=== PATIENT | female | born 1970 | race Caucasian/White ===

== ENCOUNTER 2017-05-13 09:10 | Inpatient (IN) ==
--- NOTE | 2017-05-13 09:27 | Emergency Department Note ---
Arrival - Arrival Chief Complaint: Non-Specific Stated Complaint: Thyroid abscess sent to see Dr Arteaga ED Nursing Triage Note: c/o swelling to lt side of throat on last week. pt was seen here last night and has 3 abscesses in her neck. pt was told to come back to be admitted to surgery Mode of Arrival: Ambulatory Time Seen by Provider: 05/13/17 09:20 - History of Present Illness Date of Last Menstrual Period: 2 weeks ago Allergies/Adverse Reactions: Allergies Allergy/AdvReac Type Severity Reaction Status Date / Time No Known Allergies Allergy Verified 05/12/17 21:23 Home Medications: Home Medications Medication Instructions Recorded Confirmed Type Amoxicillin/Clav Tab [Augmentin 875 mg PO Q12H 05/12/17 05/13/17 History Tab] Medical,Surgical,& Family Hx - Medical History Endocrine: History of: Thyroid Disorder (enlarged) - Social History Smoking Status: Never smoker Frequency of Alcohol Use: None Type of Drug Use: None Exam Vital Signs: Vital Signs Temperature 97.1 F L 05/14/17 06:58 Pulse Rate 75 05/14/17 06:58 Respiratory Rate 18 05/14/17 06:58 Blood Pressure 126/77 05/14/17 06:58 O2 Sat by Pulse Oximetry 99 05/14/17 06:58 Course Course Narrative: Patient was not seen by me. There should have been no note generated for this patient. Orders written for Dr. Modi. Discussed with Dr. Modi. If there is any question regarding this patient please see ER note from earlier today by Dr. Whitfield Results - Labs CBC & BMP: 05/14/17 03:33 05/14/17 03:33 Disposition Clinical Impression: Acute suppurative thyroiditis Disposition: Still a Patient
[2017-05-13] MEDS ORDERED: ACETAMINOPHEN 325 MG TABLET PO PRN (10:17)
[2017-05-13] MEDS ORDERED: ONDANSETRON 4 MG/2 ML VIAL IV PRN (10:17)
[2017-05-13] MEDS ORDERED: LACTATED RINGERS 1,000 ML IV SCH (10:17)
[2017-05-13] MEDS ORDERED: HYDROmorphone 2 MG/1 ML VIAL IV PRN (13:15)
[2017-05-13] MEDS ORDERED: ALUMINUM/MAGNES/SIMETH MAX STR 30 ML UDCUP PO PRN (13:15)
[2017-05-13] MEDS ORDERED: BISACODYL 5 MG TABLET PO PRN (13:15)
--- NOTE | 2017-05-13 13:29 | General Surg History&Physical ---
Assessment and Plan - Time spent with patient Time spent with patient: Greater than 30 minutes (1) Goiter diffuse, nontoxic Status: Acute Assessment and plan: Impression: Border of the thyroid gland with cystic and solid masses doubt an abscess Plan: Lab tests plus needle aspirations Current Visit: Yes (2) Thyroid mass of unclear etiology Status: Acute Assessment and plan: Impression: Cystic mass of the lower lobes of the thyroid etiology unclear Plan: Needle aspiration Current Visit: Yes History of Present Illness Chief complaint: Came in because of pain in the left neck History of present illness: Ms. Mccollum is a 46 year old female white who came into the emergency room because of some pain in the left neck area with a fullness in that region. She had seen a family physician who put her on some Augmentin because of some swelling in the area of the left jaw region to treat a possible inflammation of the parotid gland.. She got better with this treatment because at the time she was running fever and that seemed to resolve with fullness persist as well as some the discomfort. She came to the emergency room last night and while down there she had a CT scan of the neck and then went home and I was called about the results of the CT and had to have her come in at this time. There is suggestion of a CT that she had an enlarged thyroid probably Gorder with some cystic masses that were present in this area but they were reading them as possible abscesses. Have never really encountered an abscess of the thyroid gland so I am not sure exactly what this is doing at this time. Certainly it is a Gorder with some cystic masses present at this point and will need to get her in for some needle aspirations possible cultures of fluid just to see exactly what we are trying to deal with here. Her TSH is a little bit low but she denies being ever having abnormal thyroid function test in the past. Couple years ago she had an ultrasound here that was described as having a little nodule on the thyroid at that time but was never followed up at that point. Do these changes I will get radiology look at doing a FNA and possible aspiration of 1 of these areas just find out exactly what we might be dealing with as well as getting some cultures of the fluids. Home Medications Medication Instructions Recorded Confirmed Type Amoxicillin/Clav Tab [Augmentin 875 mg PO Q12H 05/12/17 05/13/17 History Tab] Allergies Allergy/AdvReac Type Severity Reaction Status Date / Time No Known Allergies Allergy Verified 05/12/17 21:23 Medical,Surgical,& Family Hx - Medical History Endocrine: History of: Thyroid Disorder (enlarged) - Family History Family History: Reports;: Family Cancer, Family Heart Disease (MOTHER), Family Hypertension (MOTHER) - Social History Smoking Status: Never smoker Frequency of Alcohol Use: None Type of Drug Use: None Exam - Constitutional Vitals: Period Temp Pulse Resp BP Sys/Dos Santos Pulse Ox Last 24 Hr 97.2 F-98.5 F 81-101 16-20 117-149/77-91 98-100 General appearance: no acute distress - Head Head exam: Present: normal inspection - Eye Eye exam: Present: EOMI - ENT ENT exam: Present: normal exam - Neck Neck exam: Present: lymphadenopathy (The upper end of the sternocleidomastoid muscle at the level of the jaw on the left), thyromegaly. Absent: tenderness - Respiratory Respiratory exam: Present: clear to auscultation bilaterally - Cardiovascular Cardiovascular exam: Present: RRR - GI/Abdominal GI/Abdominal exam: Present: normal bowel sounds, soft - Extremities Exam Extremities exam: Present: normal inspection - Back Exam Back exam: Present: normal inspection - Neurological Exam Neurological exam: Present: alert, oriented X3, CN II-XII intact - Skin Skin exam: Present: normal color, warm, dry 12 point system: reviewed and no additional remarkable complaints except as stated Quality Measures - VTE Contraindication to Pharmacological VTE Prophylaxis: Clinical assessment deems Pt at low risk, no prophalaxis needed Results - Labs Lab Results: I have reviewed the past 24 hour labs
--- NOTE | 2017-05-13 13:34 | EKG Report ---
Stationary ECG Study [facility] Test Date: 05/13/2017 1:32:54 PM Pat Name: JOCELYNE REYNOLDS Department: Room: 333 Gender: F Dollyman: : 1970 Requested by: Timur Modi Order Number: [id number] Reading MD: RAFIQ ELMORE Intervals Wing Rate: 76 P: 48 WA: 141 QRS: 60 QRSD: 94 T: 49 QT: 392 QTc: 422 Interpretive Statements SINUS RHYTHM LOW QRS VOLTAGE IN PRECORDIAL LEADS Electronically Signed On 05-13-17 22:32:39 CDT by RAFIQ ELMORE [email or web address]
--- NOTE | 2017-05-13 14:26 | XRay Report ---
2 view chest 05/13/2017 1:19 PM Indication: Shortness of breath Comparison: Not available Findings: Cardiomediastinal contours are normal. Lungs are clear bilaterally. . No acute osseous abnormalities. Visualized upper abdomen demonstrates no acute pathology. Impression: Normal chest PROCEDURE INTERPRETED AT [facility] DEPARTMENT OF RADIOLOGY Final Report Signed by: Jakob Parsons
[2017-05-13] MEDS: AMPICILLIN/SULBACTAM 1,500 MG in SODIUM CHLORIDE 0.9% 100 ML IV SCH ×2 (14:34→18:30)
[2017-05-13] MEDS: DEXTROSE 5% NACL 0.45% 1,000 ML IV SCH (18:29)
[2017-05-13] MEDS: DOCUSATE SODIUM 100 MG CAPSULE PO SCH (20:06)
[2017-05-14] MEDS: AMPICILLIN/SULBACTAM 1,500 MG in SODIUM CHLORIDE 0.9% 100 ML IV SCH ×4 (01:39→21:01)
[2017-05-14 03:58] LABS: Basophils # 0.1 10*3/uL (0.0-0.2); Eosinophils # 0.2 10*3/uL (0.0-0.87); Hemoglobin 11.8 GM/DL (12.0-16.0); Lymphocytes # 1.4 10*3/uL (1.4-4.0); Lymphocytes % 27.5 % (21.3-54.2); Mean Corpuscular HGB Conc 33.7 GM/DL (32-36); Mean Corpuscular Hemoglobin 27 PG (27-34); Mean Corpuscular Volume 79.5 FL (87-102); Mean Platelet Volume 10.5 FL (9.6-12.0); Monocytes # 0.4 10*3/uL (0.11-0.8); Monocytes % 7.3 % (1.7-12.7); Neutrophils # 3.2 10*3/uL (1.4-7.4); Neutrophils % 60.2 % (38.7-73.9); Platelet Count 218 T/CUMM (130-400); Red Cell Distribution Width 13.6 % (9.3-17.3); White Blood Count 5.2 T/CUMM (4-12)
[2017-05-14 04:43] LABS: Albumin 3.2 G/DL (3.4-5.0); Calcium 8.4 MG/DL (8.5-10.1); Magnesium 2.1 MG/DL (1.8-2.4); Osmolality,Calculated 276.4 MOS/KG (273-304); Potassium 4.3 MMOL/L (3.5-5.1); Total Protein 6.5 G/DL (6.4-8.3)
[2017-05-14] MEDS: DEXTROSE 5% NACL 0.45% 1,000 ML IV SCH ×2 (08:16→20:59)
[2017-05-14] MEDS: DOCUSATE SODIUM 100 MG CAPSULE PO SCH ×2 (08:55→20:57)
[2017-05-14] MEDS: PANTOPRAZOLE 40 MG TABLET PO SCH (08:55)
--- NOTE | 2017-05-14 09:18 | General Surgery Progress Note ---
Assessment and Plan - Time spent with patient Time spent with patient: Less than 30 minutes (1) Thyroid mass of unclear etiology Status: Acute Assessment and plan: 05/14/2017. Patient with an enlarged thyroid, scheduled for thyroid ultrasound and possible radiology fine-needle aspiration for biopsy, culture, and evaluation. I discussed this with the patient and her , and she seems relieved that at least we will have some degree of information to aid steering her treatment plan. Certainly she seems to have nothing to indicate an acute abscess in the neck or thyroid area at this point. Current Visit: Yes Subjective Patient reports: Present: feels better Exam - Constitutional Vitals: Period Temp Pulse Resp BP Sys/Dos Santos Pulse Ox Last 24 Hr 97.1 F-98.5 F 75-94 16-20 117-148/71-90 96-100 General appearance: no acute distress, over weight, other (Denies pain) - Head Head exam: Present: normal inspection - ENT Mouth exam: Present: normal voice - Neck Neck exam: Present: trachea midline, lymphadenopathy (Subtle fullness along the left; patient reports this is not particularly tender.), thyromegaly. Absent: tenderness - Respiratory Respiratory exam: Present: clear to auscultation bilaterally - Cardiovascular Cardiovascular exam: Present: RRR Results - Labs CBC & BMP: 05/14/17 03:33 05/14/17 03:33 Lab Results: I have reviewed the past 24 hour labs Quality Measures - VTE Contraindication to Pharmacological VTE Prophylaxis: Clinical assessment deems Pt at low risk, no prophalaxis needed
--- NOTE | 2017-05-14 11:08 | Post Interventional Procedure ---
Pre-op diagnosis: Thyromegaly, multiple thyroid nodules Post-op diagnosis: same Procedure: US guided FNA dominant complex cystic-solid nodule right thyroid lobe Radiologist: Eliecer Hernandez Anesthesia: local Specimens: other (3 cc bloody colloid, FNA fragments of solid component, small specimen for culture and GS) Estimated blood loss: none Complications: none Condition: stable Assessment and Plan - Time spent with patient Time spent with patient: Less than 30 minutes
--- NOTE | 2017-05-14 14:06 | Ultrasound Report ---
US biopsy thyroid FNA Indication: Multinodular goiter. Thyromegaly. ULTRASOUND-GUIDED FNA RIGHT MIXED CYSTIC AND SOLID THYROID NODULE Description: A formal timeout was performed. Sonographic evaluation of the thyroid confirms the presence of a nodule in the right lobe. Following a sterile prep and drape of the anterior neck, 3cc 1% lidocaine was administered subcutaneously. Under sonographic guidance, several passes were made with 22-gauge needles through the nodule during aspiration. Each pass was documented with captured sonographic images. Each aspirate was passed off the table to cytopathology. After the final pass, there was no evidence of hematoma. A dressing was applied. Specimen: 3 cc hemorrhagic colloid cystic contents. Additional FNA of tissue through the solid component of the right lobe nodule. Impression: Ultrasound-guided FNA right thyroid nodule. PROCEDURE INTERPRETED AT [facility] DEPARTMENT OF RADIOLOGY Final Report Signed by: Eliecer Hernandez M.D.
[2017-05-15] MEDS: AMPICILLIN/SULBACTAM 1,500 MG in SODIUM CHLORIDE 0.9% 100 ML IV SCH ×2 (01:25→09:05)
[2017-05-15 07:37] VITALS: BP 111/69
[2017-05-15] MEDS: PANTOPRAZOLE 40 MG TABLET PO SCH (09:00)
[2017-05-15] MEDS: DOCUSATE SODIUM 100 MG CAPSULE PO SCH (09:00)
--- NOTE | 2017-05-15 09:17 | Discharge Summary ---
Hospital Course - Hospital Course Hospital Course: Discharge summary 05/15/2017. Diagnosis: 1. Multinodular goiter 2. Cervical lymphadenopathy Procedure performed: Fine-needle aspiration biopsy of thyroid nodule with culture Brief summary-this 46-year-old white female presented to the emergency room complaining of diffuse headache and neck pain on 05/13/2017. She had recently been treated with Augmentin with good results as an outpatient by per her primary care physician for a "salivary gland infection." Her symptoms had improved, but she began having diffuse discomfort that "did not feel right" and when she presented to the ER, she underwent a head CT that was normal but neck CT suggested bilateral cervical lymphadenopathy and complex bilateral cystic changes of the thyroid with differential that included suppurative thyroiditis. She was discharged from the ER but apparently they later called her back after receiving the report suppurative thyroiditis, and told her she would need to be "admitted to the hospital under surgery." Dr. Modi was consulted at that point. After reviewing the patient's films and checking the patient, however, she had no indication of any acute abscess process on clinical exam, no elevated white count, and nothing on her physical exam that would suggest she had any type of abscess either in the neck or thyroid area. He again reviewed the CT of the neck, which appeared by his evaluation to represent a multinodular goiter with incidental finding of prominent cervical adenopathy. Her labs were notable only for a mildly elevated TSH of 4.3. At that point she was admitted for observation and IV antibiotics, and interventional radiology was consulted. The following morning, she still had no clinical presentation consistent with infection or abscess about the neck or thyroid region. On 2016, Dr. Eliecer Hernandez brought the patient to the interventional ultrasound room, where he was able to accomplish an ultrasound-guided fine-needle aspiration of the mixed cystic and solid complex thyroid mass on the right lobe. Gram stain on the specimen showed no white cells, no bacterial components , and no other abnormalities. Cultures have also been taken, and there are no organisms at this point on any preliminary studies. No other any preliminary path results are available at the time of this dictation. She has also had additional thyroid antibody and inflammatory markers for thyroid function drawn , but these have also been sent out to a reference lab and no reports will be available for 3-5 days. This morning, the FNA site is clean and dry without evidence of hematoma or any unusual bleeding or swelling. She is only minimally uncomfortable at the site, and is tolerating food and liquids without any dysphagia. We have discussed in detail the fact that she does have mild hypothyroid on her TSH, and we will plan to discharge her home on thyroid replacement with a short-term follow-up in the office. She will need follow-up of her thyroid function studies and will be scheduled to see Dr. Modi in approximately 2 weeks, with follow-up with her PCP in approximately 3-4 weeks. I have advised her just to use mild OTC ibuprofen and/or Tylenol for discomfort and to notify us if she notices any swelling or redness about the FNA site. - Time spent with patient Time with patient DS: Greater than 30 minutes (Due to patient teaching and treatment planning.) Diagnosis - Discharge Diagnosis (1) Thyroid mass of unclear etiology Status: Acute (2) Goiter diffuse, nontoxic Status: Acute Specialty Discharge - Follow Up or Referrals Follow up with: Timur Modi MD [Physician] - 2 Weeks Discharge Plan - Discharge Data Disposition: Disch To Home/Self Care Condition at Discharge: Stable Discharge Diet: advance to your usual diet Activity: resume usual activities as tolerated Hygiene: no restrictions Weight Bearing at Discharge: full weight bearing Driving: no restrictions Contact your physician if you experience:: Redness or swelling, Nausea/Vomiting , Shortness of breath, Bleeding, pain uncontrolled by pain medications - Discharge Medications Continue Amoxicillin/Clav Tab [Augmentin Tab] 875 mg PO Q12H - Follow Up or Referral - Forms/Instructions Exam - Constitutional Vitals: Period Temp Pulse Resp BP Sys/Dos Santos Pulse Ox Last 24 Hr 96.3 F-99.0 F 75-99 16-20 105-149/58-79 97-100 General appearance: no acute distress, over weight - Head Head exam: Present: normal inspection - Eye Eye exam: Present: EOMI. Absent: nystagmus, periorbital swelling Pupils: Present: MEHREEN, normal accommodation - ENT ENT exam: Present: normal oropharynx - Neck Neck exam: Present: lymphadenopathy (left cervical; stable and minimally tender to palpation.), thyromegaly (Diffuse, subtle thyroid enlargement without dominant mass. She has a small FNA site to the right lobe that is clean without unusual ecchymosis or swelling.) - Respiratory Respiratory exam: Present: clear to auscultation bilaterally - Cardiovascular Cardiovascular exam: Present: regular rate and rhythm - GI/Abdominal GI/Abdominal exam: Present: hypoactive bowel sounds - Extremities Exam Extremities exam: Present: full ROM - Neurological Exam Neurological exam: Present: alert, oriented X3 - Psychiatric Psychiatric exam: Present: normal affect, normal mood. Absent: agitated, anxious - Skin Skin exam: Present: warm, dry. Absent: petechiae, rash, urticaria Discharge Results Procedures and tests throughout hospitalization: Pending Orders 05/13/17 13:47 Thyroid Autoantibody Profile Routine Thyroid Function [place], S Routine Thyrotropin Receptor Antibody Routine 05/14/17 10:30 Body Fluid Cult and Gram Stain Stat DS: Provider Date of admission: 05/13/17 09:22 Primary care physician: . No PCP Attending physician on admission: Timur Modi MD Consults: 05/13/17 11:18 Consult to Pastoral Services [CONS] Routine Comment: Pastoral Screen: Request Telephone Engineer Visit Discharging clinician: Aileen Perez CNP, R
--- NOTE | 2017-05-15 11:17 | Pathology Report from [facility] ---
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 05/15/2017 - 9:10:58 [facility]
[2017-05-15 12:06] LABS: Thyroglob. AB < 1.8 IU/mL (<4.0); Thyroid Peroxidase Antibodies > 900.0 IU/mL (<9.0)
--- NOTE | 2017-05-20 11:55 | Physician Query Form ---
CLICK EDIT DOCUMENT TO SELECT QUERY ANSWER --> OK --> SIGN Milana Hatch RN, CCDS Certified Clinical Counter Helper W) [phone] (f) [phone] [email or web address] PROVIDERS: Make your selection(s) from the choices in EACH section by typing an "x" and enter comments in the comment section. Please use your independent medical judgment in providing your response. This request does not imply that any particular answer is desired or expected. 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.CELL BLOCK: Same" Abnormal Pathology findings are not reported unless an authorized provider indicates their clinical significance Please select the best choice: (x ) I agree with the Pathology findings ( ) I disagree with the Pathology findings ( ) No clinical significance ( ) Other/clarification of findings, please specify: ( ) Clinically unable to determine COMMENTS: PLEASE ALSO DOCUMENT RESPONSE IN PROGRESS NOTES AND/OR DISCHARGE SUMMARY Use of terms such as suspected, likely, or probable (associated with a specific diagnosis that is being evaluated, monitored, or treated as if it exists) are acceptable and can be restated in the discharge summary if not ruled out. [facility]
== END 2017-05-15 10:40 | disposition home or self-care (01) | DRG 645 ==
LOC: N.ED 09:10 → N.EDINP 09:22 → N.3E 09:47
PROVIDERS: ADMIT Specialist; ATTEND Specialist

== ENCOUNTER 2017-05-22 06:04 | Inpatient (IN) ==
[2017-05-22] MEDS ORDERED: LACTATED RINGERS 1,000 ML IV SCH ×3 (06:30→14:00)
--- NOTE | 2017-05-22 06:34 | History and Physical Update ---
History and Physical Update - History and Physical H&P was reviewed, the patient examined and there: are no changes in the patients condition since last H&P was completed.
[2017-05-22] MEDS ORDERED: ceFAZolin 1,000 MG VIAL ONE (06:48)
[2017-05-22] MEDS ORDERED: SODIUM CHLORIDE 0.9% 100 ML IV ONE (06:48)
[2017-05-22] MEDS ORDERED: DEXAMETHASONE 10 MG/1 ML VIAL ONE (07:05)
[2017-05-22] MEDS ORDERED: ROCURONIUM 100 MG/10 ML VIAL IV ONE (07:05)
[2017-05-22] MEDS ORDERED: LIDOCAINE 2% 5 ML VIAL ONE (07:05)
[2017-05-22] MEDS ORDERED: PROPOFOL 200 MG/20 ML VIAL IV ONE (07:05)
[2017-05-22] MEDS ORDERED: KETOROLAC 30 MG/1 ML VIAL ONE (07:05)
[2017-05-22] MEDS ORDERED: GLYCOPYRROLATE 0.4 MG/2 ML VIAL ONE (07:05)
[2017-05-22] MEDS ORDERED: ONDANSETRON 4 MG/2 ML VIAL ONE (07:05)
[2017-05-22] MEDS ORDERED: NEOSTIGMINE 10 MG/10 ML VIAL ONE (07:05)
[2017-05-22] MEDS ORDERED: HYDROmorphone 2 MG/1 ML VIAL IV PRN ×2 (12:13→12:59)
[2017-05-22] MEDS ORDERED: ONDANSETRON 4 MG/2 ML VIAL IV PRN ×2 (12:13→12:59)
[2017-05-22] MEDS ORDERED: ACETAMINOPHEN 325 MG TABLET PO PRN (12:13)
--- NOTE | 2017-05-22 12:51 | Anesthesia Post-Op ---
Anesthesia Post OP - Post Ansesthetic Evaluation Patient seen in post op: Yes Resp: within normal limits CV: within normal limits Mental: within normal limits Temp: within normal limits [id number]: within normal limits Nausea and Vomiting: within normal limits Pain: within normal limits
[2017-05-22] MEDS ORDERED: DESFLURANE 1 UNIT/15 MINUTE INH ONE (13:03)
[2017-05-22] MEDS ORDERED: MIDAZOLAM 2 MG/2 ML VIAL ONE (13:03)
[2017-05-22] MEDS ORDERED: SUFentanil 50 MCG/ML AMP ONE (13:03)
[2017-05-22] MEDS ORDERED: ACETAMINOPHEN 1,000 MG/100 ML VIAL IV ONE (13:04)
--- NOTE | 2017-05-22 13:13 | Operative Note ---
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 Surgeon Dr. Modi Insurance Follow Up Representative Aileen Perez, FLATTENING MACHINE OPERATOR ACNP Anesthesia was general endotracheal Brief history: 46-year-old white female who originally came to the emergency room because of discomfort and swelling in her neck for which she was treated with some antibiotics. She had a CT scan at that time that was read as a possible thyroid abscess which was unusual because I have never seen one of those in the past. While she was in studies were performed as well as a fine-needle aspiration. She was discharged and we would finally get the cytology back which was a class II suggestive of papillary cancer. This was from the mass of the right lobe. At that point time we had the patient and discussed the cytology whether and indicated the need and indications for surgery which probably would involve a total thyroidectomy. Risk and complications especially of nerve injury and hypo-thalassemia was discussed with her. She understood this and wanted to go ahead with surgery at this time. Procedure: With patient in supine position prepped and draped in sterile fashion in the head hyperextended on a shoulder roll approaches area the neck itself. There is a large mass there is distorted some of the landmarks at this time but I can finally identify the sternocleidomastoid muscles and the thyroid cartilage at this time. We selected an incision 2 finger breaths above the clavicle heads and did a transverse incision through the skin and subcutaneous tissue in this area the neck. We carried this from one sternocleidomastoid to the other. Went through the subcutaneous tissue using electrocauterization control bleeding at the level of the platysma. We then divided the platysma using electrocauterization to any bleeding. The anterior jugular veins had to be isolated and tied with a 4-0 Ethibond and divided. Once the platysma was divided were able to create a superior and inferior flap to the thyroid cartilage into the sternal notch at this time. At that point we went through the median raphae of the strap muscles to open this plane up on top of the thyroid. At that point we begin our dissection to the right getting underneath the sternal thyroid and sternal hyoid muscles and into a plane where we can dissected bluntly try to get around the edge of this large gland begin to try to roll it up. Once we mobilize it laterally at this point dividing the median vein between 4 oh ties and clips I was able to pull down on the upper pole and then get multiple ties and clips on the vessels of the superior pole and divide them at this point. We then was able to roll this gland up a little bit it is difficult because of the size and the mass and was present. We worked careful dissection through with a roll it up well enough we can see look like the recurrent laryngeal nerve. We carefully begin a trace this out as we carefully dissected this portion of the gland superiorly carefully going through the ligament of Gavin's dividing this slowly as we traced out the nerve. Once that had been traced out completely of that away were able then to mobilize his lower pole was going through these small vessels in the lower pole area dividing them between 2-0 Ethibond ties and clips. We identified 2 structures it looked to be assisted with parathyroids and we isolated them with their blood supply leaving them in place. Once we did that we finally was able to after great difficulty to roll this portion of the of the thyroid up onto the trachea. We then went across the area of the midportion of the right lobe primarily with the Harmonic Scalpel dividing the S and so we can send it off for pathology. At this point we inspected the area there is still a large mass in the what is believed to be the isthmus of the thyroid as well as the left lobe is still has some nodularity and it was not quite as big as the right lobe. At that point time I went underneath the strap muscles on top of the thyroid to mobilize this left lobe and moved bring it up dividing the median vein between clips to roll up this gland up. At this point so we got a report back from our frozen section on pathology that this mass in the right lobe was a papillary carcinoma with the capulse in tack. At that point time we pulled down on the superior pole placed multiple times on several branches of the vessels of the superior pole of 2-0 Ethibond with clips before dividing them in order to roll and bring up the plan after dividing the superior pole vessels. We then divided some of the veins in the lower pole vessels at this point Was further rotated up. Some reason this nerve on this side is a little more difficult to find once we did were able to trace it out carefully dividing the artery close to the gland with 4-0 Ethibond and clips. We found to possible parathyroids with her blood supply that we preserved at this time. Once we had that completed we are able to get this rolled up and divided ligament of Gavin's safely at this time getting it completely off the trachea. Once it was free we sent this medicine left thyroid lobe for permanent pathology. With that completed we washed and cleaned out the beds with saline solution and touched couple areas with the cautery to control any small bleeding on the trachea. Will looking as under control as we possibly could relate some Surgicel and with some Tisseel. I elected to lay to Travis drains and so we will get drain both sides safely at this time. We then laid these quarter-inch [place] exam and began to close the strap muscles with interrupted 3-0 Vicryl suture we then closed the platysma with #3-0 Vicryl suture secured the drains in with 3-0 nylon for skin clips on the skin. Bulky dressing was applied. Anesthesia report that they looked at the cords and they seem to move both of them. Patient then was taken recovery room. Estimated blood loss was 30 cc Sponge count correct 2 Drains 2 quarter Inch travis Complications none. Condition stable satisfactory Anesthesia: LAURA Surgeon / Physician: Timur Modi Insurance Follow Up Representative: Aileen Perez Estimated blood loss: other (30 cc) Specimens: other (Total thyroid) Condition: stable Disposition: floor Discharge Plan - Discharge Medications No Action No Known Home Medications [No Known Home Medications] - Follow Up or Referral - Forms/Instructions
[2017-05-22] MEDS: KETOROLAC 15 MG/1 ML VIAL IV SCH ×2 (14:57→21:43)
[2017-05-22] MEDS: ceFAZolin 2,000 MG in PREMIX 1 EACH IV SCH ×2 (14:57→23:10)
[2017-05-22] MEDS: DEXTROSE 5% NACL 0.45% 1,000 ML IV SCH (14:57)
--- NOTE | 2017-05-22 16:47 | Event Note ---
05/22/2017 1700 hrs. Patient is doing fairly well been up to the bathroom. She has just a mild amount of hoarseness and just minimal swelling at this time. No sign of any hypocalcemic changes at this time. She seems to be stable little bit of sore throat. Will just keep her on liquids for right now and observe her closely.
[2017-05-22 17:57] LABS: Hematocrit 35.5 VOL% (35.7-47.0); Hemoglobin 11.9 GM/DL (12.0-16.0)
[2017-05-23] MEDS: DEXTROSE 5% NACL 0.45% 1,000 ML IV SCH ×2 (01:33→04:32)
[2017-05-23] MEDS: KETOROLAC 15 MG/1 ML VIAL IV SCH ×4 (03:49→20:59)
[2017-05-23 07:00] LABS: Basophils % 0.2 % (0.0-0.8); Hematocrit 32.1 VOL% (35.7-47.0); Hemoglobin 10.9 GM/DL (12.0-16.0); Immature Granulocytes % 0.3 %; Immature Granulocytes Absolute 0.03 #; Lymphocytes # 1.1 10*3/uL (1.4-4.0); Lymphocytes % 10.9 % (21.3-54.2); Mean Corpuscular Hemoglobin 27 PG (27-34); Mean Corpuscular Volume 78.3 FL (87-102); Mean Platelet Volume 10.6 FL (9.6-12.0); Monocytes # 0.6 10*3/uL (0.11-0.8); Monocytes % 5.8 % (1.7-12.7); Neutrophils # 8.6 10*3/uL (1.4-7.4); Neutrophils % 82.8 % (38.7-73.9); Platelet Count 233 T/CUMM (130-400); Red Cell Distribution Width 13.3 % (9.3-17.3); White Blood Count 10.4 T/CUMM (4-12)
[2017-05-23 07:33] LABS: Albumin 3.3 G/DL (3.4-5.0); Bilirubin,Total 0.4 MG/DL (0.2-1.0); Calcium 8.3 MG/DL (8.5-10.1); Osmolality,Calculated 281.1 MOS/KG (273-304); Potassium 3.7 MMOL/L (3.5-5.1); Total Protein 6.5 G/DL (6.4-8.3)
--- NOTE | 2017-05-23 08:18 | General Surgery Progress Note ---
Assessment and Plan - Time spent with patient Time spent with patient: Less than 30 minutes (1) H/O total thyroidectomy Status: Acute Assessment and plan: 05/23/2017 Patient continues to do well postop with minimal swelling and moderate discomfort. She still has some difficulty swallowing below the sore throat at this time but otherwise is tolerating her liquids well. Appetite is fair labs look good with hematocrit of 32 and her calcium is 8.2 . Will plan to pull her drains tomorrow proximal let her go home but will advance her diet today work on her pain management. Current Visit: Yes Subjective Patient reports: Present: no new complaints, pain is less, tolerating liquids well, afebrile, other (Some sore throat still). Absent: nausea Exam - Constitutional Vitals: Period Temp Pulse Resp BP Sys/Dos Santos Pulse Ox Last 24 Hr 96.1 F-98.2 F 73-113 14-22 115-159/53-86 95-99 General appearance: mild distress - Head Head exam: Present: normal inspection - ENT ENT exam: Present: normal exam - Neck Neck exam: Present: other (The incision is clean and dry with minimal drainage and minimal swelling) - Respiratory Respiratory exam: Present: clear to auscultation bilaterally, rales - Cardiovascular Cardiovascular exam: Present: RRR - GI/Abdominal GI/Abdominal exam: Present: hypoactive bowel sounds, soft - Extremities Exam Extremities exam: Present: normal inspection - Back Exam Back exam: Present: normal inspection - Neurological Exam Neurological exam: Present: alert, oriented X3, CN II-XII intact - Skin Skin exam: Present: normal color, warm, dry Results - Labs CBC & BMP: 05/23/17 06:48 05/23/17 06:48 Lab Results: I have reviewed the past 24 hour labs Quality Measures - VTE Contraindication to Pharmacological VTE Prophylaxis: High Risk of Bleeding
[2017-05-23] MEDS: PANTOPRAZOLE 40 MG VIAL IV SCH (08:55)
--- NOTE | 2017-05-23 09:42 | Oncology Consult Note ---
Assessment and Plan (1) Thyroid cancer Status: Acute Assessment and plan: There is very little to add from oncology standpoint at this time without final pathology. She can be begun on Synthroid replacement. I will follow her up in clinic in 2-3 weeks to make a long-term plan. I anticipate that I will want a referral to an journalist who is more specialized in following thyroid cancer patients. Current Visit: Yes (2) H/O total thyroidectomy Status: Acute Current Visit: Yes (3) Goiter diffuse, nontoxic Status: Acute Current Visit: No History of Present Illness History of present illness: Ms. Mccollum is a 46 year old female who was recently found to have class 4 cytology seen on an FNA of a thyroid nodule. This FNA was done on 05/14/2017. CT scan done the day before showed some slightly enlarged cervical lymph nodes. She underwent total thyroidectomy on 05/22/2017. We do not have final pathology back at this time to make full recommendations. I spoke with the patient and her today about her diagnosis of thyroid cancer. I was not able to be specific at this point but will have more guidance once we have final pathology back. We discussed that thyroid cancer patients are better followed by endocrinology but we are happy to follow her here locally since we do not have one here in [facility]. She and her both are interested in eczema on her willing to drive to [place] for routine follow-up. I told her we can arrange this after she has a follow-up visit with me in clinic. We can go ahead and start her on Synthroid replacement. I put an order for 75 mcg. I usually defer Synthroid management to their primary provider once they are further out from surgery. Given that she had slightly enlarged lymph nodes on her CT scan preoperatively, it would probably be veronica to repeat a CT scan a month or 2 after surgery. We will also consider doing a thyroid scan to determine if she needs for radioactive iodine ablation. If she is going to see an journalist, we will likely defer that process to them. Home Medications Medication Instructions Recorded Confirmed Type No Known Home Medications [No 05/20/17 05/22/17 History Known Home Medications] Allergies Allergy/AdvReac Type Severity Reaction Status Date / Time codeine AdvReac Mild Unknown/Unable Verified 05/22/17 06:17 to obtain Medical,Surgical,& Family Hx - Medical History Neurology: No history of: Seizures HEENT: History of: Eye Problem (GLASSES) Endocrine: History of: Thyroid Disorder (ENLARGED), Endocrine Cancer (THYROID CANCER) Respiratory: No history of: Respiratory Problems (FLU VAC 2016) Other: History of: Cancer (THYROID) No history of: Anesthesia Reactions - Surgical History HEENT Surgeries: Surgical HX of: Thyroid Surgery (bilateral thyroidectomy) - Family History Family History: Reports;: Family Cancer (MOTHER CERVICAL;GRANDMOTHER ?LUNG), Family Heart Disease (MOTHER), Family Hypertension (MOTHER), Family Stroke (? FATHER) Denies;: Family Diabetes - Social History Smoking Status: Never smoker Frequency of Alcohol Use: Rarely Type of Drug Use: Unknown 12 point system: reviewed and no additional remarkable complaints except as stated - EENT Nose, mouth and throat: Present: neck pain, sore throat Exam - Constitutional Vitals: Period Temp Pulse Resp BP Sys/Dos Santos Pulse Ox Last 24 Hr 96.1 F-98.2 F 73-113 14-22 115-159/53-86 95-99 General appearance: normal weight, no acute distress - Head Head Exam: Present: normocephalic, atraumatic - Eye Eye Exam: Present: EOMI Pupils: Present: PERRL - ENT ENT exam: Present: normal exam, normal oropharynx - Neck Neck exam: Absent: lymphadenopathy, thyromegaly - Respiratory Respiratory exam: Present: CTAB. Absent: wheezes - Cardiovascular Cardiovascular exam: Present: RRR. Absent: JVD, systolic murmur - GI/Abdominal GI/Abdominal exam: Present: soft. Absent: ascites, distended, firm, mass - Neurological Exam Neurological exam: Present: alert, oriented X3 - Psychiatric Psychiatric exam: Present: normal affect, normal mood - Skin Skin exam: Present: warm, dry Results - Labs CBC & BMP: 05/23/17 06:48 05/23/17 06:48 Lab Results: I have reviewed the past 24 hour labs Quality Measures - VTE Contraindication to Pharmacological VTE Prophylaxis: High Risk of Bleeding
[2017-05-23] MEDS: HYDROcod/ACETAMIN 7.5-325 MG/15 ML UDCUP PO PRN (12:19)
--- NOTE | 2017-05-23 12:19 | Pathology Report from [facility] ---
[facility] ACCESSION # : [id number] PATIENT NAME : Jocelyne Mccollum ORDERING DR : OSVALDO COTE MD CLINICAL HX: Goiter w/mass RT lobe POST-OP DX: Same SPECIMEN INFO: #1 RT lobe #2 Isthmus of LT lobe GROSS DESCRIPTION: #1 JOCELYNE MCCOLLUM received fresh a lobular 7.0 x 7.0 x 2.0 cm right lobe of thyroid. Capsule has been opened in several areas with the capsular margin anterior inked black and the posterior inked blue. Numerous metal clips and sutures present over the capsule. On cut surface the thyroid has a nodular appearance with scattered well-demarcated nodules present. The first on the lateral/superior portion is a well-demarcated nodule with a thin white capsule. There is a well-defined 2.9 x 1.9 cm nodule with a central soft brown cut surface and a thin investing capsule which appears intact. There is an area of hemorrhage present inferiorly which suggests a previous needle biopsy. There is an additional 1.1 cm diameter pink nodule present at the what may be the isthmus. Sections: 1A-1C, 1L largest nodule mid right lobe , 1D smaller nodule right mid lobe, 1E and 1F separate nodule inferior, 1G-1I superior lobe, 1J and 1K mid lobe with whitish nodules.#2 Received in formalin labeled with the patients name WILL MCCOLLUM and is a left thyroid lobe with isthmus. The left lobe measures 6.0 x 2.5 x 1.8 cm while the isthmus measures 3.5 x 4.0 x 2.0 cm. The serosa is nodular and red-johnson with multiple clips and sutures noted. Sectioning through the isthmus reveals a hemorrhagic cyst measuring 2.8 x 2.3 cm. Sectioning through the adjacent left lobe reveals a 2.0 x 2.0 cm hemorrhagic cyst. No distinct masses grossly appreciated. Bone Puller section of isthmus submitted in cassettes 2A thru 2C, manufacturer's representative left lobe submitted in cassettes 2D thru 2G. DIAGNOSIS FOR JOCELYNE MCCOLLUM: #1 & #2 THYROID, TOTAL THYROIDECTOMY W/O NODES, ( Fragmented into lobes, 13 x 7 x 2 cm): TUMOR TYPE: Papillary thyroid carcinoma , classic pattern (29 mm) with capsular invasion, follicular variant (encapsulated, 11 mm), and spindle cell pattern (5 mm). TUMOR SITE: Right Lobe. TUMOR SIZE: 29 mm, 11 mm, & 5 mm. FOCALITY: Multifocal (3 foci). MARGINS: Uninvolved by carcinoma with nearest (right mid capsular) margin = <0.5 mm. VASCULAR INVASION: Not identified. LYMPHATIC INVASION: Not identified. PERINEURAL INVASION: Not identified. MITOTIC RATE : 1 MF/ 10 HPF. EXTRATHYROID EXTENSION: Not identified. REGIONAL LYMPH NODES: None present. ADDITIONAL FINDINGS: Multinodular goiter and marked Hashimotos (lymphocytic) thyroiditis. AJCC (2018) PATHOLOGIC STAGE I (pT2 pN0, <55 yo). COLLECTED DATE: 05/22/2017 [facility] REPORT DATE: 05/23/2017 ELECTRONICALLY SIGNED BY: Jamie Ferrer M.D. 05/23/2017 - 11:02:27 [facility]ENTER[facility]
[2017-05-24] MEDS: KETOROLAC 15 MG/1 ML VIAL IV SCH ×2 (03:05→08:10)
[2017-05-24 05:55] LABS: Basophils # 0.1 10*3/uL (0.0-0.2); Basophils % 1.1 % (0.0-0.8); Eosinophils # 0.1 10*3/uL (0.0-0.87); Eosinophils % 1.4 % (0.00-10.9); Hematocrit 30.7 VOL% (35.7-47.0); Immature Granulocytes % 0.2 %; Immature Granulocytes Absolute 0.01 #; Lymphocytes # 1.5 10*3/uL (1.4-4.0); Mean Corpuscular HGB Conc 32.6 GM/DL (32-36); Mean Corpuscular Hemoglobin 26 PG (27-34); Mean Corpuscular Volume 80.2 FL (87-102); Mean Platelet Volume 10.7 FL (9.6-12.0); Monocytes # 0.4 10*3/uL (0.11-0.8); Monocytes % 6.5 % (1.7-12.7); Neutrophils # 3.6 10*3/uL (1.4-7.4); Neutrophils % 63.8 % (38.7-73.9); Platelet Count 189 T/CUMM (130-400); Red Blood Count 3.83 MC/CUMM (3.8-5.5); Red Cell Distribution Width 13.6 % (9.3-17.3); White Blood Count 5.7 T/CUMM (4-12)
[2017-05-24 06:45] LABS: Magnesium 1.9 MG/DL (1.8-2.4); Osmolality,Calculated 280.1 MOS/KG (273-304); Potassium 3.7 MMOL/L (3.5-5.1)
[2017-05-24] MEDS ORDERED: LEVOTHYROXINE 75 MCG TABLET PO SCH (07:00)
[2017-05-24] MEDS: PANTOPRAZOLE 40 MG VIAL IV SCH (08:10)
[2017-05-24] MEDS: HYDROcod/ACETAMIN 7.5-325 MG/15 ML UDCUP PO PRN (09:00)
[2017-05-24 12:15] VITALS: BP 125/69
--- NOTE | 2017-05-24 13:03 | Discharge Summary ---
Hospital Course - Hospital Course Hospital Course: Discharge summary: Discharge diagnosis: Papillary cancer of the thyroid Procedure: Total thyroidectomy Surgeon Dr. Modi Privacy Director Dr. Simeon Brief summary: 46-year-old white female initially came into the emergency room the hospital because of question of a thyroid abscess which was highly unusual. She was put on some antibiotics and everything looked pretty stable at that point time so we ended up getting a fine-needle aspiration of the areas in the thyroid. She had a Gorder there was multinodular multicystic with a mass in the right lobe of the thyroid. The mass in the right lobe of the thyroid we come back is a class IV cytology suggestive of papillary cancer. With that a long discussion with the patient and the family resulted in her come back to same day surgery which time we took her to the operating room. At this admission in the operating room we did a total thyroidectomy confirming that this nodule in the right lobe was a papillary cancer. Postoperatively she is done very well mild hoarseness calcium was 8.2 yesterday is 8 today has been good and stable at this time. Swelling in the neck has been minimal and her soreness in the throat improved and her hoarseness is cleared. She is done well and we have taken her drains out today without any problems. We will go ahead and plan to discharge her having her stay on some vitamin D and some Tums for now just to be on the safe side of things. Her final path did come back as a papillary cancer that had invaded through the [place]. The left lobes I think what I can tell from the pathology appears to be negative for any further cancer. While patient was here with consult to Dr. Jenkins the oncologist to see her And he was going to go ahead and start her on her thyroid medicine with the idea of radioactive iodine could be done at a later date as needed. With her doing as well as she is will go ahead and discharge her and I will follow her up in a week to get her stitches out. - Time spent with patient Time with patient DS: Less than 30 minutes Diagnosis - Discharge Diagnosis (1) H/O total thyroidectomy Status: Resolved (2) Thyroid cancer Status: Resolved Specialty Discharge - Follow Up or Referrals Follow up with: Darrion Boo MD [Physician] - (CALL OFFICE ON FRIDAY FOR 2-3WEEK FOLLOW UP APPOINTMENT) Timur Modi MD [Physician] - 06/02/17 - Speciality Discharge Instructions Surgery Instructions: 1. Patient may shower but keep a light dressing over the incision until the stitches are out. 2. Start some vitamin D tablets daily. 3. Start taking some Tums 1 twice a day Discharge Plan - Discharge Data Disposition: Disch To Home/Self Care Condition at Discharge: Stable Discharge Diet: advance to your usual diet Activity: increase activity as tolerated, no lifting Hygiene: may shower Weight Bearing at Discharge: full weight bearing Driving: not until seen by doctor Contact your physician if you experience:: fever over 101, Redness or swelling, Shortness of breath, pain uncontrolled by pain medications Wound / Dressing Care Instructions: Wound care to the neck incision daily. 1. May shower and wash with soap of choice. 2. After the shower lightly pat the incision. 3. May apply a little bacitracin Neosporin ointment to the incision. 4. Use the rest of the Aquacel Ag gauze cut a strip to cover the incision. 5. Cover with a 4 x 4 gauze. 6. May hold the gauze in place with a single piece of tape or you can use a tile to go around the neck to hold the dressing in place. - Discharge Medications New Levothyroxine Tab [Synthroid Tab] 75 mcg PO DAILY@0700 #60 tablet Acetaminophen Tab [Tylenol Tab] 650 mg PO Q6H PRN tablet PRN Reason: Pain Mild (1-3) HYDROcod/ACETAM 7.5-325MG/15ML 15 ml PO Q6H PRN #400 ml PRN Reason: Pain Moderate (4-7) - Follow Up or Referral Follow Up: Darrion Boo MD [Physician] - (CALL OFFICE ON FRIDAY FOR 2-3WEEK FOLLOW UP APPOINTMENT) - Forms/Instructions Exam - Constitutional Vitals: Period Temp Pulse Resp BP Sys/Dos Santos Pulse Ox Last 24 Hr 96.5 F-99.6 F 67-78 18-19 125-147/54-96 95-98 General appearance: no acute distress - Head Head exam: Present: normal inspection - ENT ENT exam: Present: normal exam - Neck Neck exam: Present: other (Incision is clean and dry with minimal drainage. Drains were removed.) - Respiratory Respiratory exam: Present: clear to auscultation bilaterally - Cardiovascular Cardiovascular exam: Present: regular rate and rhythm - GI/Abdominal GI/Abdominal exam: Present: hypoactive bowel sounds, soft - Extremities Exam Extremities exam: Present: normal inspection - Back Exam Back exam: Present: normal inspection - Neurological Exam Neurological exam: Present: alert, oriented X3, CN II-XII intact - Psychiatric Psychiatric exam: Present: normal affect, normal mood - Skin Skin exam: Present: normal color, warm, dry Discharge Results Labs on day of discharge: Labs from last 24 hours 05/24/17 05/24/17 05:21 05:21 WBC 5.7 D RBC 3.83 Hgb 10.0 L Hct 30.7 L MCV 80.2 L MCH 26 L MCHC 32.6 RDW 13.6 Plt Count 189 MPV 10.7 Neut % (Auto) 63.8 Lymph % (Auto) 27.0 [place] % (Auto) 6.5 Eos % (Auto) 1.4 Baso % (Auto) 1.1 H Neut # (Auto) 3.6 Lymph # (Auto) 1.5 [place] # (Auto) 0.4 Eos # (Auto) 0.1 Baso # (Auto) 0.1 Immature Gran % 0.2 Nucleated RBC % 0.0 Immature Gran # 0.01 Nucleated RBCs # 0.00 Immature Plt Fraction 0.0 Sodium 142 Potassium 3.7 Chloride 107 Carbon Dioxide 29 Anion Gap 9.7 BUN 10 Creatinine 0.60 GFR Calculation 138 BUN/Creatinine Ratio 16.00 Glucose 77 Calculated Osmolality 280.1 Calcium 8.0 L Magnesium 1.9 DS: Provider Date of admission: 05/22/17 06:04 Primary care physician: . No PCP Attending physician on admission: Timur Modi MD Consults: 05/22/17 16:44 Consult to Physician [CONS] Routine Comment: Consulting Provider: Darrion Boo Consulting Provider Notified: Yes When should Consulting Provider be notified: In am Person Notified: ramses called Date Notified: 05/23/17 Time Notified: 08:37 Consult Notification Comment: Patient with papillary carcinoma of the thyroid status post total thyroidectomy. Help me to decide her best timing for putting her on thyroid supplements Discharging clinician: Timur Modi MD Expected date of discharge: 05/24/17
== END 2017-05-24 14:57 | disposition home or self-care (01) | DRG 627 ==
LOC: N.OR 06:04 → N.SDSINP 06:04 → EDSTATUS 07:30 → N.3E 14:25
PROVIDERS: ADMIT Specialist; ATTEND Specialist

== ENCOUNTER 2019-03-01 22:04 | Observation (INO) ==
[2019-03-01] MEDS ORDERED: PANTOPRAZOLE 40 MG VIAL IV STA (23:57)
[2019-03-01] MEDS ORDERED: ALUM/MAG/SIMETH/LIDO VISC 1:1 30 ML BOTTLE PO STA (23:57)
[2019-03-01] MEDS ORDERED: ONDANSETRON 4 MG/2 ML VIAL IV STA (23:57)
[2019-03-02 00:37] LABS: Basophils % 0.6 % (0.0-0.8); Eosinophils # 0.1 10*3/uL (0.0-0.87); Eosinophils % 1.4 % (0.00-10.9); Hematocrit 37.5 VOL% (35.7-47.0); Hemoglobin 12.2 GM/DL (12.0-16.0); Immature Granulocytes % 0.6 %; Immature Granulocytes Absolute 0.02 #; Lymphocytes # 0.9 10*3/uL (1.4-4.0); Mean Corpuscular HGB Conc 32.5 GM/DL (32-36); Mean Corpuscular Volume 78.5 FL (87-102); Mean Platelet Volume 10.8 FL (9.6-12.0); Monocytes % 7.5 % (1.7-12.7); Neutrophils % 63.9 % (38.7-73.9); Platelet Count 213 T/CUMM (130-400); Red Blood Count 4.78 MC/CUMM (3.8-5.5); Red Cell Distribution Width 14.3 % (9.3-17.3); White Blood Count 3.6 T/CUMM (4-12)
[2019-03-02 00:48] LABS: Apearance,Urine CLEAR (Clear); Bilirubin,Urine Negative (Negative); Blood, Urine Small mg/dL (Negative); Glucose,Urine (UA) Negative (Negative); Ketones,Urine 80 mg/dL (Negative); Mucus,Urine Occasional /LPF (Occasional); Nitrite,Urine Negative (Negative); Protein,Urine Negative; RBC,Urine 1 /HPF (0-4); Squamous Epithelial Cell,Urine Occasional /HPF (0-10); Urine Color Yellow (Yellow); Urine Specific Gravity 1.019 (1.001-1.035); WBC,Urine 1 /HPF (0-6)
[2019-03-02 00:59] LABS: Calcium 8.9 MG/DL (8.5-10.1)
[2019-03-02 01:00] LABS: Albumin 4.2 G/DL (3.4-5.0)
[2019-03-02 01:02] LABS: Osmolality,Calculated 271.8 MOS/KG (273-304)
[2019-03-02 01:11] LABS: Bilirubin,Total 0.8 MG/DL (0.2-1.0)
[2019-03-02] MEDS ORDERED: PIPERACILLIN/TAZOBACTAM 3,375 MG in SODIUM CHLORIDE 0.9% 100 ML IV STA (01:20)
[2019-03-02] MEDS ORDERED: HYDROmorphone 2 MG/1 ML VIAL IV PRN (02:35)
[2019-03-02] MEDS ORDERED: ACETAMINOPHEN 325 MG TABLET PO PRN ×2 (02:35)
[2019-03-02] MEDS: SODIUM CHLORIDE 0.9% 1,000 ML IV SCH ×2 (03:10→14:57)
[2019-03-02 05:04] LABS: Basophils % 0.6 % (0.0-0.8); Eosinophils # 0.1 10*3/uL (0.0-0.87); Eosinophils % 1.8 % (0.00-10.9); Hematocrit 34.7 VOL% (35.7-47.0); Hemoglobin 11.5 GM/DL (12.0-16.0); Lymphocytes % 30.8 % (21.3-54.2); Mean Corpuscular HGB Conc 33.1 GM/DL (32-36); Mean Corpuscular Volume 78.3 FL (87-102); Monocytes % 12.9 % (1.7-12.7); Neutrophils % 53.9 % (38.7-73.9); Platelet Count 209 T/CUMM (130-400); Red Blood Count 4.43 MC/CUMM (3.8-5.5); Red Cell Distribution Width 14.5 % (9.3-17.3); White Blood Count 3.3 T/CUMM (4-12)
[2019-03-02 05:38] LABS: Albumin 3.7 G/DL (3.4-5.0); Bilirubin,Total 1.3 MG/DL (0.2-1.0); Calcium 8.8 MG/DL (8.5-10.1); Osmolality,Calculated 270.8 MOS/KG (273-304); Total Protein 7.3 G/DL (6.4-8.3)
[2019-03-02] MEDS: LEVOTHYROXINE 75 MCG TABLET PO SCH (06:13)
[2019-03-02] MEDS: PANTOPRAZOLE 40 MG VIAL IV SCH (09:03)
[2019-03-02] MEDS: PIPERACILLIN/TAZOBACTAM 3,375 MG in SODIUM CHLORIDE 0.9% 100 ML IV SCH ×2 (09:04→17:05)
[2019-03-02] MEDS: HYDROmorphone 2 MG/1 ML VIAL IV PRN ×2 (09:06→17:55)
[2019-03-02 09:31] LABS: % Iron Saturation 5.9 % (18-50)
[2019-03-02 10:44] LABS: Hepatitis B Core IgM Quant 0.12 Index; Hepatitis B Surface Ag Quant < 0.10 Index; Hepatitis B Surface Ag Result Negative (Negative); Hepatitis C Virus Ab Quant 0.12 Index; Hepatitis C Virus Ab Result Negative (Negative)
[2019-03-02] MEDS: ONDANSETRON 4 MG/2 ML VIAL IV PRN ×2 (11:59→17:55)
[2019-03-03] MEDS: SODIUM CHLORIDE 0.9% 1,000 ML IV SCH ×3 (00:57→09:38)
[2019-03-03] MEDS: PIPERACILLIN/TAZOBACTAM 3,375 MG in SODIUM CHLORIDE 0.9% 100 ML IV SCH ×2 (01:55→09:38)
[2019-03-03 05:15] LABS: Basophils % 0.7 % (0.0-0.8); Eosinophils # 0.1 10*3/uL (0.0-0.87); Eosinophils % 1.6 % (0.00-10.9); Hematocrit 34.3 VOL% (35.7-47.0); Hemoglobin 10.9 GM/DL (12.0-16.0); Immature Granulocytes % 0.2 %; Immature Granulocytes Absolute 0.01 #; Lymphocytes # 1.1 10*3/uL (1.4-4.0); Lymphocytes % 26.2 % (21.3-54.2); Mean Corpuscular HGB Conc 31.8 GM/DL (32-36); Mean Corpuscular Volume 79.8 FL (87-102); Mean Platelet Volume 10.7 FL (9.6-12.0); Monocytes % 8.6 % (1.7-12.7); Neutrophils % 62.7 % (38.7-73.9); Platelet Count 225 T/CUMM (130-400); Red Cell Distribution Width 14.5 % (9.3-17.3); White Blood Count 4.3 T/CUMM (4-12)
[2019-03-03] MEDS: LEVOTHYROXINE 75 MCG TABLET PO SCH (05:33)
[2019-03-03 05:41] LABS: Albumin 3.3 G/DL (3.4-5.0); Bilirubin,Total 0.9 MG/DL (0.2-1.0); Calcium 8.3 MG/DL (8.5-10.1); Osmolality,Calculated 269.8 MOS/KG (273-304); Total Protein 6.7 G/DL (6.4-8.3)
[2019-03-03] MEDS: PANTOPRAZOLE 40 MG VIAL IV SCH (09:35)
[2019-03-03] MEDS ORDERED: DIAZEPAM 5 MG TABLET PO ONE (12:22)
[2019-03-03 13:01] LABS: INR 1.1; PT Patient Result 12.1 SECS
[2019-03-03 16:27] VITALS: BP 122/81
[2019-03-04] MEDS ORDERED: PANTOPRAZOLE 40 MG TABLET PO SCH (09:00)
[2019-03-06] MEDS ORDERED: ERGOCALCIFEROL 50,000 UNIT CAPSULE PO SCH (09:00)
== END 2019-03-03 18:58 | disposition home or self-care (01) ==
LOC: N.ED 22:04 → N.EDINP 03-02 01:24 → INTOOBSV 03-02 01:24 → N.3E 03-02 02:28
PROVIDERS: ADMIT Surgery; ATTEND Surgery

== ENCOUNTER 2019-07-06 20:03 | Observation (INO) ==
[2019-07-06] MEDS ORDERED: ALUM/MAG/SIMETH/LIDO VISC 1:1 30 ML BOTTLE PO STA (21:01)
[2019-07-06] MEDS ORDERED: ONDANSETRON 4 MG/2 ML VIAL IV STA (21:01)
[2019-07-06] MEDS ORDERED: PANTOPRAZOLE 40 MG VIAL IV STA (21:01)
[2019-07-06] MEDS ORDERED: HYDROmorphone 2 MG/1 ML VIAL IV STA (21:01)
[2019-07-06] MEDS ORDERED: SODIUM CHLORIDE 0.9% 1,000 ML IV STA (21:01)
[2019-07-06 21:27] LABS: Basophils # 0.1 10*3/uL (0.0-0.2); Basophils % 0.8 % (0.0-0.8); Eosinophils # 0.2 10*3/uL (0.0-0.87); Hematocrit 37.7 VOL% (35.7-47.0); Hemoglobin 11.9 GM/DL (12.0-16.0); Immature Granulocytes % 0.3 %; Immature Granulocytes Absolute 0.03 #; Lymphocytes # 1.2 10*3/uL (1.4-4.0); Lymphocytes % 13.7 % (21.3-54.2); Mean Corpuscular HGB Conc 31.6 GM/DL (32-36); Mean Corpuscular Volume 78.2 FL (87-102); Mean Platelet Volume 10.9 FL (9.6-12.0); Monocytes % 6.2 % (1.7-12.7); Platelet Count 228 T/CUMM (130-400); Red Blood Count 4.82 MC/CUMM (3.8-5.5); Red Cell Distribution Width 14.3 % (9.3-17.3); White Blood Count 8.9 T/CUMM (4-12)
[2019-07-06 21:46] LABS: Alanine Aminotransferase 21 U/L (13-56); Albumin 4.1 G/DL (3.4-5.0); Alkaline Phosphatase 79 U/L (45-117); Amylase 68 U/L (25-115); Aspartate Amino Transferase 15 U/L (0-37); Blood Urea Nitrogen 8 MG/DL (7-18); Calcium 8.7 MG/DL (8.5-10.1); Estimated Glom Filtration Rate 120 ML/MIN; Glucose 102 MG/DL (74-106); Osmolality,Calculated 278.3 MOS/KG (273-304); Total Protein 7.8 G/DL (6.4-8.3)
[2019-07-06 22:50] LABS: Apearance,Urine CLEAR (Clear); Bacteria,Urine Occasional /HPF (Few); Bilirubin,Urine Negative (Negative); Blood, Urine Small mg/dL (Negative); Glucose,Urine (UA) Negative (Negative); Ketones,Urine Negative (Negative); Mucus,Urine Few /LPF (Occasional); Nitrite,Urine Negative (Negative); Protein,Urine Negative; RBC,Urine 2 /HPF (0-4); Squamous Epithelial Cell,Urine Occasional /HPF (0-10); Urine Color Yellow (Yellow); Urine Specific Gravity 1.015 (1.001-1.035); Urine Urobilinogen < 2.0 EU/DL (0.2-1.0); WBC,Urine 1 /HPF (0-6)
[2019-07-06] MEDS ORDERED: ACETAMINOPHEN 325 MG TABLET PO PRN (23:20)
[2019-07-06] MEDS ORDERED: ONDANSETRON 4 MG/2 ML VIAL IV PRN (23:20)
[2019-07-06] MEDS ORDERED: HYDROmorphone 2 MG/1 ML VIAL IV PRN (23:20)
[2019-07-06] MEDS: SODIUM CHLORIDE 0.9% 1,000 ML IV SCH (23:55)
[2019-07-07] MEDS: PIPERACILLIN/TAZOBACTAM 3,375 MG in SODIUM CHLORIDE 0.9% 100 ML IV SCH ×4 (00:33→23:33)
[2019-07-07 05:26] LABS: Basophils % 0.7 % (0.0-0.8); Eosinophils # 0.2 10*3/uL (0.0-0.87); Eosinophils % 2.7 % (0.00-10.9); Hematocrit 34.4 VOL% (35.7-47.0); Hemoglobin 10.8 GM/DL (12.0-16.0); Immature Granulocytes % 0.4 %; Immature Granulocytes Absolute 0.02 #; Mean Corpuscular HGB Conc 31.4 GM/DL (32-36); Mean Corpuscular Volume 79.3 FL (87-102); Mean Platelet Volume 11.7 FL (9.6-12.0); Monocytes % 8.7 % (1.7-12.7); Neutrophils % 69.5 % (38.7-73.9); Platelet Count 186 T/CUMM (130-400); Red Blood Count 4.34 MC/CUMM (3.8-5.5); Red Cell Distribution Width 14.4 % (9.3-17.3); White Blood Count 5.6 T/CUMM (4-12)
[2019-07-07] MEDS: LEVOTHYROXINE 150 MCG TABLET PO SCH (05:29)
[2019-07-07 05:54] LABS: Albumin 3.3 G/DL (3.4-5.0); Bilirubin,Total 0.8 MG/DL (0.2-1.0); Calcium 8.1 MG/DL (8.5-10.1); Total Protein 6.6 G/DL (6.4-8.3)
[2019-07-07] MEDS: SODIUM CHLORIDE 0.9% 1,000 ML IV SCH ×3 (07:20→18:00)
[2019-07-07] MEDS: LINACLOTIDE 145 MCG CAPSULE PO SCH (07:30)
[2019-07-07] MEDS: PANTOPRAZOLE 40 MG TABLET PO SCH (09:00)
[2019-07-07] MEDS ORDERED: PANTOPRAZOLE 40 MG VIAL IV SCH (09:00)
[2019-07-07] MEDS ORDERED: BUPIVACAINE 0.25% /EPI 10 ML VIAL ONE (14:41)
[2019-07-07] MEDS ORDERED: LIDOCAINE 1%/EPI INJ 20 ML VIAL ONE (14:41)
[2019-07-07] MEDS ORDERED: TISSUE ADHESIVE 1 EACH APPLICATOR TOP ONE (14:41)
[2019-07-07] MEDS ORDERED: LIDOCAINE 2% 5 ML VIAL ONE (17:28)
[2019-07-07] MEDS ORDERED: MIDAZOLAM 2 MG/2 ML VIAL ONE (17:28)
[2019-07-07] MEDS ORDERED: ONDANSETRON 4 MG/2 ML VIAL ONE ×2 (17:28→17:31)
[2019-07-07] MEDS ORDERED: DEXAMETHASONE 4 MG/1 ML VIAL ONE (17:28)
[2019-07-07] MEDS ORDERED: PROPOFOL 200 MG/20 ML VIAL IV ONE (17:28)
[2019-07-07] MEDS ORDERED: DESFLURANE 1 UNIT/15 MINUTE INH ONE (17:28)
[2019-07-07] MEDS ORDERED: fentaNYL 100 MCG/2 ML VIAL ONE (17:28)
[2019-07-07] MEDS ORDERED: KETOROLAC 30 MG/1 ML VIAL ONE (17:28)
[2019-07-07] MEDS ORDERED: ROCURONIUM 100 MG/10 ML VIAL IV ONE (17:29)
[2019-07-07] MEDS ORDERED: GLYCOPYRROLATE 0.4 MG/2 ML VIAL ONE (17:29)
[2019-07-07] MEDS ORDERED: SUCCINYLCHOLINE 200 MG/10 ML VIAL ONE (17:29)
[2019-07-07] MEDS ORDERED: PHENYLEPHRINE 1 MG/10 ML SYRINGE IV ONE (17:29)
[2019-07-07] MEDS ORDERED: ACETAMINOPHEN 1,000 MG/100 ML VIAL IV ONE (17:29)
[2019-07-07] MEDS ORDERED: NEOSTIGMINE 10 MG/10 ML VIAL ONE (17:29)
[2019-07-07] MEDS ORDERED: MEPERIDINE 25 MG/1 ML VIAL ONE (17:30)
[2019-07-07] MEDS ORDERED: ONDANSETRON 4 MG/2 ML VIAL IV PRN (17:35)
[2019-07-07] MEDS ORDERED: HYDROmorphone 2 MG/1 ML VIAL IV PRN (17:35)
[2019-07-07] MEDS ORDERED: MEPERIDINE 25 MG/1 ML VIAL IV PRN (17:35)
[2019-07-08] MEDS: SODIUM CHLORIDE 0.9% 1,000 ML IV SCH (05:19)
[2019-07-08] MEDS: LEVOTHYROXINE 150 MCG TABLET PO SCH (05:19)
[2019-07-08 05:32] LABS: Basophils % 0.2 % (0.0-0.8); Hematocrit 33.5 VOL% (35.7-47.0); Hemoglobin 10.7 GM/DL (12.0-16.0); Immature Granulocytes % 0.5 %; Immature Granulocytes Absolute 0.05 #; Lymphocytes # 0.6 10*3/uL (1.4-4.0); Lymphocytes % 6.4 % (21.3-54.2); Mean Corpuscular HGB Conc 31.9 GM/DL (32-36); Mean Corpuscular Volume 78.5 FL (87-102); Mean Platelet Volume 10.9 FL (9.6-12.0); Monocytes % 5.7 % (1.7-12.7); Neutrophils % 87.2 % (38.7-73.9); Platelet Count 219 T/CUMM (130-400); Red Blood Count 4.27 MC/CUMM (3.8-5.5); Red Cell Distribution Width 14.3 % (9.3-17.3); White Blood Count 9.2 T/CUMM (4-12)
[2019-07-08] MEDS: PIPERACILLIN/TAZOBACTAM 3,375 MG in SODIUM CHLORIDE 0.9% 100 ML IV SCH (08:45)
[2019-07-08] MEDS: PANTOPRAZOLE 40 MG TABLET PO SCH (08:46)
[2019-07-08] MEDS: LINACLOTIDE 145 MCG CAPSULE PO SCH (08:46)
[2019-07-08 11:40] VITALS: BP 114/64
[2019-07-13] MEDS ORDERED: ERGOCALCIFEROL 50,000 UNIT CAPSULE PO SCH (09:00)
== END 2019-07-08 13:22 | disposition home or self-care (01) ==
LOC: N.ED 20:03 → N.EDINP 22:19 → INTOOBSV 22:19 → N.3E 22:39
PROVIDERS: ADMIT Surgery; ATTEND Surgery
PROC: LAPCHOL (2019-07-07 15:48)